=== PATIENT | female | born 1995 | race Two or more races ===

== ENCOUNTER 2024-01-02 03:40 | Emergency (ER) | payer MEDICAID, SELFPAY ==
[2024-01-02 03:41] VITALS: BMI 37.2
[2024-01-02 04:07] VITALS: BP 118/63; PULSE 73; RESP 16; TEMP 37.2; O2SAT 97
--- NOTE | 2024-01-02 04:11 | XR_ITS ---
Examination: CT abdomen and pelvis without contrast. Coronal 3-D reconstructions. Sagittal 2-D reconstructions. Date and time of exam:January 02, 2024 0516 hrs. Indications: Lower abdominal pain left lower quadrant abdominal pain beginning 3 weeks ago, history acute appendicitis CTDI: vol (mGy): 11.91 DLP: (mGycm): 659 Technique: Axial images of the abdomen have been obtained, 3 mm slice thickness Intravenous contrast material has not been administered. Low dose protocols were performed. One or more of the following dose reduction techniques were used; automated exposure control, adjustment of the mA and/or KV according to patient size, use of iterative reconstruction technique. Findings: No focal liver or splenic lesion Contracted gallbladder no stones No pancreatic or adrenal mass No renal or ureteral calculi, no hydronephrosis 7 mm fat-containing umbilical hernia Absent appendix 18 mm focal area of fat inflammation adjacent to the sigmoid colon Anteverted uterus with irregular uterine fundal contour Urinary bladder intact Impression: Acute epiploic appendagitis, focal fat inflammation near the sigmoid colon
--- NOTE | 2024-01-02 04:11 | PD.EDRME ---
Rapid Medical Screening Exam RME Arrival date/time: 01/02/24 03:40 28-year-old female presents emergency department complaining of intermittent left lower quadrant abdominal pain that is been ongoing for 3 weeks. Chief Complaint: Abdominal Pain Vital signs: Vital Signs Temperature 98.9 F 01/02/24 04:07 Pulse Rate 73 01/02/24 04:07 Respiratory Rate 16 01/02/24 04:07 Blood Pressure 118/63 01/02/24 04:07 Pulse Oximetry (%) 97 01/02/24 04:07 Oxygen Delivery Method Room Air 01/02/24 04:07 Vital signs reviewed by provider: Yes
[2024-01-02 04:41] LABS: Collection Type, Urine Clean Catch
[2024-01-02 04:43] LABS: Basophils % (Auto) 0 % (0-2.5); Eosinophils # (Auto) 0.2 Thou/mm3 (0.0-0.5); Eosinophils % (Auto) 2 % (0-10); Hematocrit 41.4 % (36.0-46.0); Immature Granulocytes % (Auto) 0 % (0-0); Immature Granulocytes Auto 0.02 Thou/mm3 (0.00-0.00); Lymphocytes # (Auto) 3.1 Thou/mm3 (1.0-4.8); Lymphocytes % (Auto) 31 % (10-50); Mean Corpuscular HGB Conc 33.8 g/dl (31.0-37.0); Mean Corpuscular Hemoglobin 30.2 pg (25.0-35.0); Mean Corpuscular Volume 89 fL (80-100); Monocytes # (Auto) 0.5 Thou/mm3 (0.0-0.8); Monocytes % (Auto) 5 % (0-12); Neutrophils # (Auto) 6.3 Thou/mm3 (1.8-7.7); Neutrophils % (Auto) 62 % (37-80); Nucleated Red Blood Cell % 0 /100 WBC (0); Platelet Count 237 Thou/mm3 (140-440); RDW Standard Deviation 38.9 fL (36.4-46.3); Red Blood Count 4.64 Miln/mm3 (4.00-5.20); White Blood Count 10.1 Thou/mm3 (3.6-11.0)
[2024-01-02 04:46] LABS: Bilirubin,Urine Negative (Negative); Blood,Urine 1+ (Negative); Clarity,Urine Turbid (Clear/Hazy); Color,Urine Yellow (Lt Yel-Yel); Culture Indicated,Urine Not Indicated; Glucose, Urine Negative (Negative); Ketones,Urine Negative (Negative); Leukocyte Esterase,Urine Positive (Negative); Nitrite,Urine Negative (Negative); Protein,Urine Trace (Neg - Trace); RBC,Urine 4 /hpf (0-3); Specific Gravity,Urine 1.035 (1.001-1.035); Squamous Epithelial Cell,Urine 15 /hpf (0-5); Urobilinogen,Urine Negative mg/dL (0.0-1.0); WBC,Urine 5 /hpf (0-5)
[2024-01-02 05:01] LABS: Alanine Aminotransferase 12 U/L (10-49); Albumin, Serum 4.5 gm/dL (3.5-5.0); Albumin/Globulin Ratio 1.6 (1.2-2.2); Alkaline Phosphatase 102 U/L (46-116); Anion Gap 5 (7-16); Aspartate Amino Transferase 13 U/L (0-34); BUN/Creatinine Ratio 22 Ratio (12-20); Bilirubin,Total 0.5 mg/dL (0.3-1.2); Blood Urea Nitrogen 11 mg/dL (9-23); Calcium 9.1 mg/dL (8.3-10.6); Calcium (Corrected) 9.1 mg/dL (8.5-10.1); Carbon Dioxide 24.1 mMol/L (20.0-31.0); Chloride 107 mMol/L (98-107); Creatinine (Component) 0.5 mg/dL (0.6-1.3); Estimated Creatinine Clearance 168.8 mL/min (>60); Globulin 2.9 gm/dL (2.3-3.5); Glucose 98 mg/dL (74-106); Lipase 39 U/L (12-53); Osmolality,Calculated 271 (275-295); Potassium 3.7 mMol/L (3.4-5.1); Sodium 136 mMol/L (136-145); Total Protein 7.4 gm/dL (5.7-8.2); eGFR > 60 See Note
[2024-01-02 05:05] LABS: HCG,Qualitative Serum Negative
--- NOTE | 2024-01-02 05:53 | PRELIM_ITS ---
CT scan of the abdomen and pelvis without intravenous contrast (axial sections with sagittal and dorina nal reformats) January 02, 2024 0516 hours Clinical History: Left lower quadrant abdominal pain Comp arison: None.Findings:The lung bases are clear.The liver, gallbladder, pancreas, spleen, kidneys and adrenals are unremarkable on this noncontrast study.No evidence of bowel obstruction. S/P appendicect yaneli. Focal thickening of the sigmoid colon associated with peripheral fat stranding, no perforation, no collections. Diverticulosis of the colon. There is no mesenteric or retroperitoneal adenopathy.The urinary bladder is unremarkable. There is no free fluid or free air.The osseous structures are unrem arkable.Impression:Findings suspicious for acute diverticulitis versus epiploic appendagitis. Please correlate clinically. Report Electronically Signed By: Montrell Shelley 01/02/2024 5:52:32 AM [EST]
[2024-01-02 06:11] VITALS: BP 108/72; PULSE 79; RESP 18; TEMP 37.3; O2SAT 99
--- NOTE | 2024-01-02 06:42 | PD.EDABDPN ---
ED Abdominal Pain RME/HPI General Chief Complaint: Abdominal Pain Stated complaint: LOWER ABD PAIN Time seen by provider: 01/02/24 06:20 Arrival date/time: 01/02/24 03:40 RME / HPI RME / HPI narrative: 01/02/24 03:40 28-year-old female presents emergency department complaining of intermittent left lower quadrant abdominal pain that is been ongoing for [address] LOVELACE MAIN ED EVALUATION: 28 year old female presents to the ED for complaint of pain to the abdomen and back pain beginning 4 days ago. Describes pain as aching in sensation that begins in the left mid to lower abdomen that radiates around left flank. Rating as moderate. Reportedly 3 weeks ago had experienced similar pain, occurring intermittently, and was evaluated at an urgent care. States she was diagnosed with a UTI and prescribed antibiotics. States she followed up with [facility] ~2 weeks ago and had a CT scan performed. States she was started on a 7-day course of Augmentin for inflammation in my bladder and intestines . States she completed the antibiotic 5 days ago and pain returned 4 days ago, remaining constant since. Denies any history of similar pain prior to 3 weeks ago. Denies fevers, chills, chest pain, cough, vomiting, diarrhea, constipation, or urinary symptoms. Denies vaginal discharge or leg swelling. LMP 12/07/2023 Related Data Previous Rx's ?Medication ?Instructions ?Recorded ibuprofen 600 mg tablet 600 mg PO Q8H PRN fever or pain 01/04/21 #30 tabs ciprofloxacin HCl 500 mg tablet 500 mg PO BID #20 tabs 01/02/24 (Cipro) Allergies Allergy/AdvReac Type Severity Reaction Status Date / Time dextromethorphan Allergy Intermediate Rash Verified 01/04/21 13:08 guaifenesin [From Robitussin] Allergy Hives Verified 01/02/24 03:41 Review of Systems Review of Systems Narrative Review of Systems: Constitutional: DENIES; Fevers Eyes: DENIES; Loss of vision Head/Ear/Nose: DENIES; Loss of hearing Throat: DENIES; Dysphagia Cardiovascular: DENIES; Chest pain, dyspnea or syncope Respiratory: DENIES; Shortness of breath Gastrointestinal: SEE HPI +abdominal pain, left flak pain. DENIES; Rectal bleeding or melena. Genitourinary: DENIES; Dysuria (painful or difficult urination) Musculoskeletal: DENIES; Arthralgia (pain in a joint),; Skin: DENIES; Rash Neurological: DENIES; Loss of function or movement Psychiatric: DENIES; recent major life stressor, emotional problem, illicit drug use or abuse Endocrinology: DENIES; Weight change Hematologic/Lymphatic: DENIES; Abnormal bruising Allergic/Immunologic: DENIES; Urticaria (hives) Past Medical History Past Medical History NEUROLOGIC: Negative Neurological Disorders CARDIAC: Negative Cardiac Disorders GASTROINTESTINAL: Negative Gastrointestinal Disorders GENITOURINARY: Negative Genitourinary Disorders or Renal Disease MUSCULOSKELETAL: Negative Musculoskeletal Disorders ENDOCRINE: Negative Endocrine Disorders HEMATOLOGIC: Negative Blood Disorders Family History FAMILY HISTORY: Negative Family Psychiatric Problems, Family Respiratory Disorders, Family Cardiac Disorders, Family Gastrointestinal Problems, Family Cancer, Family Surgery or Family Anesthesia Reaction Surgical History SURGICAL: Negative Section Social History SMOKING STATUS: Never smoker ED Exam Narrative Physical exam: Physical Exam: General: The vital signs were reviewed. The patient is non-toxic, in no apparent distress and appears healthy with a patent airway, no respiratory distress and has no apparent circulatory problems. Head & Scalp: Normocephalic, atraumatic. Face: Appears normal and is without lesions, deformity. Ears: Left external pinna appears normal. Right external pinna appears normal. Eyes: The sclera is anicteric. No obvious photophobia. The Left and Right Orbit/Lid/Conjunctiva appears normal without swelling, discoloration or injection. Nose: The nose is without deformity, discharge or tenderness; Throat: Appears normal. The mucous membranes are pink and moist without exudates, redness or mass seen. The tongue appears normal. Neck: The neck is supple and no apparent mass or adenopathy. Chest: The chest wall is normal in size and symmetry and has no chest wall tenderness or crepitus. The patient displays normal ventilator effort without retractions, accessory muscle use and has adequate air movement bilaterally with no wheezes and no rales. Cardiovascular: Regular rate and rhythm; No murmurs, rubs, or gallops; Gastrointestinal: The abdomen appears normal. But obese No obvious hernias or mass. The abdomen very tender in the midline lower abdomen and slightly to the left otherwise the remaining is soft and benign, non-distended, with no pain, no guarding and no rebound tenderness. Bowel sounds are present and normal sounding. No CVA tenderness. Genitourinary: Back/Spine: Nontender Extremities/Musculoskeletal/lymphatic: The bilateral upper and lower extremities are warm. There is no evidence of arterial insufficiency. There is no evidence of venous insufficiency/edema. The patient spontaneously moves bilateral upper and lower extremities with no pain and no limitation of movement. There is no apparent, injury or trauma. Skin: The skin is warm, dry and intact. No rashes. No petechia. No purpura. No abnormal bruising. The color is appropriate with no cyanosis. Mental status/Psychiatric: Mental status is appropriate for age. The patient has no apparent delusions, visual hallucinations, no apparent audible hallucinations. The patient has no apparent suicidal thoughts/ideation and no apparent homicidal thoughts/ideation. Neurological: The patient is awake, alert, interactive, cordial, cooperative and is oriented to name and situation. The patient follows commands and answers historical question with no impairment. There is no visual disturbance apparent. The pupils are equal and reactive bilaterally with normal eye movements and no diplopia The bilateral upper and lower extremities have normal strength, normal range of motion and normal functioning. The gait, station and balance appear to be baseline with no acute change Course Quality Measures none Orders Category Date Time Status CT abdomen pelvis wo con Stat Exams 01/02/24 04:11 Completed US pelvic complete Stat Exams 01/02/24 06:51 Completed CBC Stat Lab 01/02/24 04:32 Completed CMP [Comprehensive Metabolic Panel] Stat Lab 01/02/24 04:32 Completed HCG,Qualitative Serum Stat Lab 01/02/24 04:32 Completed Lipase Stat Lab 01/02/24 04:32 Completed Urinalysis, C/S if Indicated Stat Lab 01/02/24 04:35 Completed Piper/Tazo 3.375 gm [Zosyn] Med 01/02/24 06:51 Discontinued 3.375 gm in 50 ml IV X1 Sodium Chloride 0.9% 1000 ml [Ns] 1,000 ml Med 01/02/24 06:51 Discontinued IV 150 mls/hr Sodium Chloride 0.9% 1000 ml [Ns] 1,000 ml Med 01/02/24 06:51 Discontinued IV 999 mls/hr Vital Signs Vital signs: Vital Signs Temperature 98.9 F 01/02/24 04:07 Pulse Rate 73 01/02/24 04:07 Respiratory Rate 16 01/02/24 04:07 Blood Pressure 118/63 01/02/24 04:07 Pulse Oximetry (%) 97 01/02/24 04:07 Oxygen Delivery Method Room Air 01/02/24 04:07 Pulse ox is 97% on room air which is adequate. Abdominal Pain MDM MDM Narrative MDM Narrative:: IClarissa, gen scribing for and in the presence of Dr. Lovelace. Patient had a stat rad report done from the morning that we have suggested acute diverticulitis with a question of epiploic appendagitis but was then later over read by our radiologist as acute epiploic appendagitis with 18 mm of inflammatory changes. Ultrasound of the pelvis was unremarkable. Spoke with Dr. Bhat our surgeon on-call and felt the patient could be put on Cipro for 7 days 500 mg and he would follow the patient up at the [facility] the following Monday. Those instructions were given to the patient. I also consulted with the hospitalist previous to that and they were in agreement with the plan with Dr. Bhat Patient was ambulatory belly was relatively soft and benign and she was given 10 days of Cipro follow-up with the clinic the following Monday and knows return if getting worse. Patient data External records reviewed:: [facility] previous records (I reviewed ED visit on 01/04/2021) Clinical information provided by:: patient Social determinants that could affect healthcare access:: none Patient has the following chronic illnesses:: None reported How is presenting disease/condition affected by chronic disease/condition?: no chronic disease Evaluation data The following diagnostics were reviewed and interpreted by me:: lab results and radiology exam(s) Lab and/or radiology exams considered but not ordered:: None Interpretation Summary: Ordering Physician: Date of Service: Procedure(s): Accession Number(s): cc: ~ CT scan of the abdomen and pelvis without intravenous contrast (axial sections with sagittal and coronal reformats) January 02, 2024 0516 hours Clinical History: Left lower quadrant abdominal pain Comparison: None. Findings: The lung bases are clear. The liver, gallbladder, pancreas, spleen, kidneys and adrenals are unremarkable on this noncontrast study. No evidence of bowel obstruction. S/P appendicectomy. Focal thickening of the sigmoid colon associated with peripheral fat stranding, no perforation, no collections. Diverticulosis of the colon. There is no mesenteric or retroperitoneal adenopathy. The urinary bladder is unremarkable. There is no free fluid or free air. The osseous structures are unremarkable. Impression: Findings suspicious for acute diverticulitis versus epiploic appendagitis. Please correlate clinically. Report Electronically Signed By: Montrell Shelley 01/02/2024 5:52:32 AM [EST] Ordering Physician: Swapnil Lovelace MD Date of Service: 01/02/24 Procedure(s): US pelvic complete Accession Number(s): [id number] cc: Kunal Goyal MD; Swapnil Lovelace MD; Herberth Whitman MD~ Examination: Pelvic ultrasound, transabdominal, complete Technique: Transabdominal ultrasound of the pelvis performed using grayscale imaging Date and time of exam: January 02, 2024 0813 hours INDICATIONS: Lower abdominal pain beginning 3 weeks ago FINDINGS: Uterus 10.7 x 4.1 x 5.7 cm anteverted Left uterine fundal mass 19 x 12 x 16 mm No acute or gestation Endometrial stripe 0.8 cm Right ovary 3.0 x 2.2 cm arterial flow Left ovary 3.6 x 3.4 cm 14 mm follicular cyst IMPRESSION: Small area of uterine fundal fibroid degeneration, consider 6 month follow-up pelvic sonography Dictated By: Herberth Whitman MD Signed By: <Electronically signed by Herberth Whitman MD in OV> 01/02/24 0948 Medications / Prescriptions Medications or Prescriptions considered but not ordered:: None Medication administrations:: Medication Administration History Discontinued Medications Sodium Chloride (Ns) 1,000 mls @ 999 mls/hr IV .Q1H1M ONE Stop: 01/02/24 07:51 Last Infusion: 01/02/24 08:47 Dose: Infused Documented By: Admin: 01/02/24 07:23 Dose: 999 mls/hr Documented By: Sodium Chloride (Ns) 1,000 mls @ 150 mls/hr IV .[id number] ONE Stop: 01/02/24 13:30 Last Infusion: 01/02/24 15:26 Dose: Infused Documented By: Admin: 01/02/24 08:47 Dose: 150 mls/hr Documented By: Piperacillin/Tazobactam/Dextrose (Zosyn) 3.375 gm in 50 mls @ 100 mls/hr IV X1 ONE Stop: 01/02/24 07:20 Last Infusion: 01/02/24 08:00 Dose: Infused Documented By: Admin: 01/02/24 07:23 Dose: 100 mls/hr Documented By: See above Consultations Consultation(s) initiated? (list below): Yes Consultation #1 (Physician, Specialty, Details): I spoke with surgeon Dr. Bhat. Discussed patients PMHx, HPI, ED course, exam findings, labs, and radiology results as noted above. Time: 14:14 Diagnosis Differential diagnosis abdominal pain: abdominal pain, calculus of kidney, constipation, diverticulitis, endometriosis, gastroenteritis and pancreatitis Most likely diagnosis given after review of the tests above:: Epiploic appendagitis Admission Indicated Admission indicated?: not indicated Admission Request Was there a request for admission?: No Disposition Plan Disposition Plan: Discharge Discharge Attestation Discharge Attestation: The patient and all family members were given an opportunity to ask questions and understood the discharge instructions. Discharge instructions specifically effects, indications for sooner follow up or return to the emergency department, and the expected course of current diagnosis. Patient condition: Stable Discharge Plan Plan Patient Disposition: HOME (Self Care) Prescriptions/Referrals Prescriptions/Med Rec: New ciprofloxacin HCl [Cipro] 500 mg tablet 500 mg PO BID Qty: 20 0RF No Action ibuprofen 600 mg tablet 600 mg PO Q8H PRN (Reason: fever or pain) Qty: 30 0RF Referrals: Kunal Goyal MD [Primary Care Provider] - In 1 week Problem List Clinical Impression: Epiploic appendagitis, Abdominal pain Patient/Caregiver Discharge Instructions Additional Instructions: You have acute epiploic appendagitis. This usually resolves in 3 to 4 weeks. You have an appointment to see Dr. Bhat at [facility] this coming January 07 at 9 AM please call [facility] to confirm the appointment and the time and let them know Dr Bhat instructed you to come to be seen. If you are getting worse with increasing pain fever then return to emergency department for reevaluation. Please take the Cipro 500 mg twice a day for the next 7 days as instructed. Print Language: Japanese Stand Alone Forms: Patient Portal Info Letter
--- NOTE | 2024-01-02 06:51 | XR_ITS ---
Examination: Pelvic ultrasound, transabdominal, complete Technique: Transabdominal ultrasound of the pelvis performed using grayscale imaging Date and time of exam: January 02, 2024 0813 hours INDICATIONS: Lower abdominal pain beginning 3 weeks ago FINDINGS: Uterus 10.7 x 4.1 x 5.7 cm anteverted Left uterine fundal mass 19 x 12 x 16 mm No acute or gestation Endometrial stripe 0.8 cm Right ovary 3.0 x 2.2 cm arterial flow Left ovary 3.6 x 3.4 cm 14 mm follicular cyst IMPRESSION: Small area of uterine fundal fibroid degeneration, consider 6 month follow-up pelvic sonography
[2024-01-02] MEDS: SODIUM CHLORIDE 0.9% 1000 ML 1,000 ML 999 ML IV (07:23)
[2024-01-02] MEDS: PIPER/TAZO 3.375 GM 3.375 GM/50 ML BAG IV (07:23)
--- NOTE | 2024-01-02 07:30 | PC.NURSE ---
Assumed care of patient. Pt is here for abd pain x 3 weeks. Pt states pain is 5/10 and is tolerable. VSS. A&O4. GCS 15. NAD noted at this time.
[2024-01-02 08:07] VITALS: BP 113/62; PULSE 70; RESP 19; TEMP 36.8; O2SAT 100
[2024-01-02] MEDS: SODIUM CHLORIDE 0.9% 1000 ML 1,000 ML 150 ML IV (08:47)
--- NOTE | 2024-01-02 10:05 | PC.NURSE ---
Pt ambulated to restroom with steady gait, independently.
[2024-01-02 12:19] VITALS: BP 100/54; PULSE 76; RESP 18; TEMP 37; O2SAT 100
--- NOTE | 2024-01-02 14:41 | EVENTNT_ITS ---
Documentation for date of: 01/02/24 Event Note Event Note: Received a call from ED doctor foradmission ofthis 28-year-old female who presented to the ED with complaints of abdominal pain, located in the left lower quadrant that had been going on for 3 weeks and progressively worse in the last 4 days, 10/10 in severity. Patient was seen by [facility] 2 weeks ago and had a CT scan performed, started on a 7-day course of Augmentin which she completed 5 days ago, however pain has remained. Labs and vitals are unremarkable. CT abdomen and pelvis was done which showed acute epiploic appendagitis. Reviewed the case and recommended to contact surgery first as this is usually conservative management with hydration and NSAIDs with surgical intervention if conservative management fails. Dr. Lovelace contacted surgeon on-call Dr. Bhat who recommended to discharge patient on ciprofloxacin and follow-up as an outpatient. Case was discussed with attending physician, Dr Yana Luo MD PGY-1
== END 2024-01-02 15:31 | disposition home or self-care (01) ==
PROVIDERS: Emergency Provider Emergency Medicine; PCP Family Medicine
DX: K63.89 Other specified diseases of intestine (principal); D25.9 Leiomyoma of uterus, unspecified
CPT/HCPCS: 36415; 74176; 76856; 80053; 81001; 83690; 84703; 85025; 99284; J2543; J7030